=== PATIENT | male | born 1955 | race Caucasian/White ===

== ENCOUNTER 2022-12-13 10:19 | Outpatient (CLI) | payer OTHER | END 2022-12-13 10:20 | disposition home or self-care (01) | LOC: CSHCP 10:19 | PROVIDERS: ATTEND Internal Medicine | DX: R06.09 Other forms of dyspnea (principal); J98.4 Other disorders of lung | CPT/HCPCS: 94060; 94726; 94729; 94760 ==

== ENCOUNTER 2023-11-05 15:16 | Observation (INO) | payer MEDICARE, OTHER ==
[2023-11-05 16:26] VITALS: BMI 40.6
[2023-11-05] MEDS ORDERED: Senokot S 8.6-50 MG TAB PO PRN (17:41)
[2023-11-05] MEDS ORDERED: Acetaminophen 500 MG TAB PO PRN (18:07)
[2023-11-05] MEDS ORDERED: Losartan 50 MG TAB PO SCH (18:30)
[2023-11-05] MEDS: Amlodipine 5 MG TAB PO SCH (18:31)
[2023-11-05] MEDS: Naproxen 500 MG TAB PO SCH (18:33)
[2023-11-05] MEDS: Losartan 25 MG TAB PO SCH (18:36)
[2023-11-05 18:58] LABS: Troponin I Less than 0.010 ng/mL (< 0.028)
[2023-11-06 04:44] LABS: Anion Gap 12 mmol/L (10-20); BUN (Urea Nitrogen) 13 mg/dL (8.4-25.7); Calc. Creatinine Clearance 131 mL/min (70-130); Calcium 9.3 mg/dL (7.8-10.44); Carbon Dioxide 24 mmol/L (23-31); Chloride 104 mmol/L (98-107); Estimated GFR 85; Glucose 174 mg/dL (80-115); Potassium 4.3 mmol/L (3.5-5.1); Sodium 136 mmol/L (136-145)
[2023-11-06 04:57] LABS: #Basophils 0.04 10x3/uL (0.0-0.2); #Eosinphils 0.26 10x3/uL (0.0-0.5); #Monocytes 0.72 10x3/uL (0.0-1.1); #Neutrophils 4.39 10x3/uL (1.5-8.4); %Basophils 0.6 % (0.0-2.0); %Eosinophils 3.7 % (0.0-6.0); %Lymphocytes 22.7 % (18.0-47.0); %Monocytes 10.2 % (0.0-10.0); %Neutrophils 62.4 % (40.0-75.0); Hematocrit 38.2 % (38.8-50.0); Hemoglobin 13.4 g/dL (13.5-17.5); Mean Corpuscular HGB CONC 35.1 g/dL (32.0-36.0); Mean Corpuscular Hemoglobin 31.8 pg (27.0-33.0); Mean Corpuscular Volume 90.7 fL (81.2-95.1); Mean Platelet Volume 10.2 fL (7.4-10.4); Platelet Count 203 10x3/uL (150-450); RBC Distribution Width 13.1 % (11.5-14.5); Red Blood Cell (RBC) Count 4.21 10x6/uL (4.32-5.72)
[2023-11-06] MEDS: Naproxen 500 MG TAB PO SCH (10:22)
[2023-11-06] MEDS: Amlodipine 5 MG TAB PO SCH (10:23)
[2023-11-06] MEDS: Losartan 25 MG TAB PO SCH (10:23)
[2023-11-06] MEDS: Enoxaparin 40 MG (0.4 mL) SYRINGE SC SCH (10:23)
[2023-11-06] MEDS: Tamsulosin HCl 0.4 MG CAP PO SCH (10:23)
[2023-11-06] MEDS ORDERED: Iopamidol 300 61% 100 ML VIAL FS ONE (10:51)
[2023-11-06 11:48] VITALS: BP 160/83; TEMP 97.1
[2023-11-06] MEDS ORDERED: SUMAtriptan Succinate 6 MG/0.5 ML VIAL SC PRN (14:54)
== END 2023-11-06 15:50 | disposition home or self-care (01) ==
LOC: CSHTELE 15:45
PROVIDERS: ADMIT Hospitalist; ATTEND Hospitalist
PROC: B24BZZZ Ultrasonography of Heart with Aorta (ICD-10-PCS; principal; 2023-11-06)
DX: I25.10 Atherosclerotic heart disease of native coronary artery without angina pectoris (principal); E11.9 Type 2 diabetes mellitus without complications; I10 Essential (primary) hypertension; Z79.899 Other long term (current) drug therapy; Z79.84 Long term (current) use of oral hypoglycemic drugs; Z79.890 Hormone replacement therapy; Z87.891 Personal history of nicotine dependence
CPT/HCPCS: 71275; 80048; 84484; 85025; 93005; 93306; J1650; Q9967; 36415; 93010; 96372; G0378